=== PATIENT | male | born 1995 | race Caucasian/White ===

== ENCOUNTER 2023-10-25 22:38 | Emergency (ER) | payer MEDICAID ==
[~2023-10-25] VITALS: Ht 172.7 cm; Wt 78.0 kg
[2023-10-25 22:43] VITALS: BP 111/58; PULSE 86; RESP 16; TEMP 98.1; O2SAT 99
== END 2023-10-26 08:12 | disposition left against medical advice (07) ==
LOC: ER 22:38
DX: R42 Dizziness and giddiness (principal); Z53.21 Procedure and treatment not carried out due to patient leaving prior to being seen by health care provider

== ENCOUNTER 2023-12-07 17:25 | Emergency (ER) | payer MEDICAID ==
[~2023-12-07] VITALS: Ht 185.4 cm; Wt 85.0 kg
[2023-12-07 17:31] VITALS: O2SAT 98
[2023-12-07 18:47] LABS: CHLORIDE 106 mEq/L (98-107); POTASSIUM 3.9 mEq/L (3.5-5.1); SODIUM 140 mEq/L (136-145)
[2023-12-07 18:48] LABS: CARBON DIOXIDE 27 mEq/L (21-32)
[2023-12-07 18:49] LABS: CALCIUM 9.4 mg/dL (8.7-10.4)
[2023-12-07 18:52] LABS: BASOPHILS % 1.1 % (0.0-2.0); EOSINOPHILS % 2.5 % (0.0-5.0); HEMATOCRIT. 41.6 % (42.0-52.0); LYMPHOCYTES % 36.1 % (20.0-50.0); MEAN CORPUSCULAR HEMOGLOBIN 30.4 pg (28.0-32.0); MEAN CORPUSCULAR HGB CONC 33.7 g/dL (31.0-37.0); MEAN CORPUSCULAR VOLUME 90.3 fL (80.0-94.0); MEAN PLATELET VOLUME 7.7 fl (7.4-10.4); MONOCYTES % 7.4 % (2.0-8.0); NEUTROPHILS % 52.9 % (40.0-76.0); PLATELET 236 x1000/uL (130-400); RED BLOOD CELL COUNT 4.61 mill/uL (4.7-6.1); RED CELL DISTRIBUTION WIDTH 13.1 % (11.6-14.6); WHITE BLOOD COUNT 6.5 x1000/uL (4.5-11.0)
[2023-12-07 18:53] LABS: CREATININE 0.8 mg/dL (0.6-1.3); GLUCOSE 89 mg/dL (70-105); UREA NITROGEN BLOOD 9 mg/dL (9-23)
[2023-12-07 18:54] LABS: CLARITY URINE CLEAR (CLEAR); COLOR URINE YELLOW (YELLOW); GLUCOSE URINE NEGATIVE (NEGATIVE); KETONES URINE NEGATIVE (NEGATIVE); LEUKOCYTE ESTERASE URINE 1+ (NEGATIVE); NITRITE URINE NEGATIVE (NEGATIVE); OCCULT BLOOD URINE 3+ (NEGATIVE); PROTEIN URINE 1+ (NEGATIVE); SPECIFIC GRAVITY URINE 1.022 (1.005-1.030)
[2023-12-07 18:55] LABS: ACETAMINOPHEN < 2 ug/mL (10-30); AMMONIA < 17 uMol/L (<32); CREATINE KINASE 402 IU/L (46-171)
[2023-12-07 18:59] LABS: ETHANOL BLOOD < 10 mg/dL (<10); TROPONIN I HIGH SENSITIVITY < 4 ng/L (3.0-53)
[2023-12-07 19:11] LABS: *AMPHETAMINES SCREEN URINE NEGATIVE (NEGATIVE); *BARBITURATES SCREEN URINE NEGATIVE (NEGATIVE); *BENZODIAZEPINES SCREEN URINE NEGATIVE (NEGATIVE); *COCAINE SCREEN URINE NEGATIVE (NEGATIVE); CANNABINOID URINE SCREEN NEGATIVE (NEGATIVE); ECSTASY MDMA SCREEN URINE NEGATIVE (NEGATIVE); METHADONE URINE SCREEN NEGATIVE (NEGATIVE); OPIATES URINE SCREEN NEGATIVE (NEGATIVE); PHENCYCLIDINE URINE SCREEN NEGATIVE (NEGATIVE)
[2023-12-07 19:22] LABS: BACTERIA URINE TRACE; CALCIUM OXALATE CRYSTALS URINE 1+ /lpf; RBC URINE 25-50 /hpf (0-2); SQUAMOUS EPITHELIAL CELL URINE FEW /lpf (RARE/1+)
[2023-12-07] MEDS: CEPHALEXIN 250MG CAPSULE PO ONE (22:48)
[2023-12-08 08:42] VITALS: BP 124/73; PULSE 86; RESP 16; TEMP 36.11400; O2SAT 98
== END 2023-12-08 09:21 | disposition home or self-care (01) ==
LOC: ER 17:25
DX: R41.82 Altered mental status, unspecified (principal); R46.2 Strange and inexplicable behavior
CPT/HCPCS: 36415; 71045; 80048; 80305; 80307; 80320; 80329; 81003; 82140; 82550; 84443; 84484; 85025; 99285; G0480